=== PATIENT | female | born 1935 | race Caucasian/White ===

== ENCOUNTER 2017-07-20 10:20 | Emergency (ER) | payer MEDICARE, OTHER ==
[2017-07-20 10:28] VITALS: BMI 32.5
[2017-07-20 10:33] VITALS: TEMP 97.9
[2017-07-20] MEDS ORDERED: Tmp-Smz 800 mg-160 mg DS Tab PO STA (11:27)
[2017-07-20 11:53] VITALS: BP 150/75; PULSE 62; RESP 17; O2SAT 97
--- NOTE | 2017-07-20 13:22 | ED PDOC ---
Arrival/HPI - General Chief Complaint: Lower Extremity Problem/Injury Time Seen by Provider: 07/20/17 10:56 Historian: Patient - History of Present Illness Narrative History of Present Illness (Text): 07/20/17 11:00 A 82 year old female, whose past medical history includes hypertension and diabetes, comes in with [id number] and presents to the emergency department complaining of right toe pain for 2 weeks. Patient reports she went to see her cage tender 2 weeks ago and had her toe nails clipped. Next day, patient began experiencing right toe pain (1st digit) and swelling. She decided to come to the ER instead of seeing her cage tender again. Patient denies of any fever, recent injury, or any other complaints. Also, patient mentions her blood sugar was taken at home and is 97. PMD: Dr. Torres Cylinder Batcher: Dr. Teetee Queen Symptom Onset: Sudden Symptom Course: Unchanged Past Medical History - Provider Review Nursing Documentation Reviewed: Yes - Infectious Disease Hx of Infectious Diseases: None - Cardiac Hx Cardiac Disorders: Yes Hx Hypertension: Yes - Pulmonary Hx Respiratory Disorders: No - Neurological Hx Neurological Disorder: No - HEENT Hx HEENT Disorder: No - Renal Hx Renal Disorder: No - Endocrine/Metabolic Hx Endocrine Disorders: Yes Hx Diabetes Mellitus Type 2: Yes - Hematological/Oncological Hx Blood Disorders: No - Integumentary Hx Dermatological Disorder: No - Musculoskeletal/Rheumatological Hx Musculoskeletal Disorders: Yes Hx Arthritis: Yes - Gastrointestinal Hx Gastrointestinal Disorders: No - Genitourinary/Gynecological Hx Genitourinary Disorders: No - Psychiatric Hx Psychophysiologic Disorder: No Hx Substance Use: No - Anesthesia Hx Anesthesia: No Family/Social History - Physician Review Nursing Documentation Reviewed: Yes Family/Social History: No Known Family HX Smoking Status: Never Smoked Hx Alcohol Use: No Hx Substance Use: No Allergies/Home Meds Allergies/Adverse Reactions: Allergies No Known Allergies Allergy (Verified 07/20/17 10:28) Home Medications: Home Meds Medication Instructions Recorded Confirmed Aspirin [Adult Low Dose Aspirin EC] 1 tab PO DAILY 07/20/17 07/20/17 Losartan/Hydrochlorothiazide 1 tab PO DAILY 07/20/17 07/20/17 [Losartan-Hctz 100-25 mg Tab] Pravastatin Sodium [Pravachol] 1 tab PO DAILY 09/12/17 09/12/17 metFORMIN [glucOPHAGE] 500 mg PO BID 07/20/17 07/20/17 Review of Systems - Physician Review All systems were reviewed & negative as marked: Yes - Review of Systems Constitutional: absent: Fevers, Other (no recent injury) Musculoskeletal: Joint Swelling (right toe swelling (1st digit)), Other (right toe pain (1st digit)) Physical Exam Vital Signs Reviewed: Yes Vital Signs Temp Pulse Resp BP Pulse Ox 07/20/17 11:51 62 17 150/75 97 07/20/17 10:32 97.9 F 66 18 152/73 H 96 Temperature: Afebrile Blood Pressure: Normal Pulse: Regular Respiratory Rate: Normal Appearance: Positive for: Well-Appearing Pain Distress: None Mental Status: Positive for: Alert and Oriented X 3 - Systems Exam Head: Present: Atraumatic, Normocephalic Pupils: Present: PERRL Extroacular Muscles: Present: EOMI Conjunctiva: Present: Normal Mouth: Present: Moist Mucous Membranes Neck: Present: Normal Range of Motion Respiratory/Chest: Present: Clear to Auscultation, Good Air Exchange. No: Respiratory Distress, Accessory Muscle Use Cardiovascular: Present: Regular Rate and Rhythm, Normal S1, S2. No: Murmurs Abdomen: Present: Normal Bowel Sounds. No: Tenderness, Distention, Peritoneal Signs Back: Present: Normal Inspection Upper Extremity: Present: Normal Inspection. No: Cyanosis, Edema Lower Extremity: Present: Tenderness (right toe (1st digit), no visual toenail) , Swelling (mild swelling right toe (1st)). No: Other (no pus or drainage of right toe) Neurological: Present: GCS=15, CN II-XII Intact, Speech Normal Skin: Present: Warm, Dry, Normal Color. No: Rashes Psychiatric: Present: Alert, Oriented x 3, Normal Insight, Normal Concentration Medical Decision Making ED Course and Treatment: 07/20/17 11:06 Impression: 82 year old female with right toe pain (1st digit). Physical exam shows right toe tenderness, no visual toenail, mild swelling, no pus or drainage. Differential Diagnosis included but are not limited to: Ingrown toenail vs. Cellulitis Plan: -- Bactrim -- There is no evidence of ingrown toe nail. No pus or drainage. Prior Visits: Notes and results from previous visits were reviewed. Patient was last seen in the emergency department on Progress Notes: Patient's daughter will make sure that patient takes antibiotics and they would like to follow up with their cage tender. - Medication Orders Current Medication Orders: Discontinued Medications Trimethoprim/Sulfamethoxazole (Bactrim Ds Tab) 1 tab PO STAT STA PRN Reason: Protocol Stop: 07/20/17 11:28 Last Admin: 07/20/17 11:46 Dose: 1 tab - Scribe Statement The provider has reviewed the documentation as recorded by the Brennan Easton Provider Scribe Attestation: All medical record entries made by the Scribe were at my direction and personally dictated by me. I have reviewed the chart and agree that the record accurately reflects my personal performance of the history, physical exam, medical decision making, and the department course for this patient. I have also personally directed, reviewed, and agree with the discharge instructions and disposition. Disposition/Present on Arrival - Present on Arrival Any Indicators Present on Arrival: No History of DVT/PE: No History of Uncontrolled Diabetes: No Urinary Catheter: No History of Decub. Ulcer: No History Surgical Site Infection Following: None - Disposition Have Diagnosis and Disposition been Completed?: Yes Diagnosis: Cellulitis, toe Disposition: HOME/ ROUTINE Disposition Time: 11:53 Patient Plan: Discharge Condition: IMPROVED Discharge Instructions (ExitCare): Cellulitis (ED) Additional Instructions: Ms Nava, thank you for letting us take care of you today. Your provider was Dr. Bae. You were treated for Toe Cellulitis. The emergency medical care you received today was directed at your acute symptoms. If you were prescribed any medication, please fill it and take as directed. It may take several days for your symptoms to resolve. Return to the Emergency Department if your symptoms worsen, do not improve, or if you have any other problems. Please contact your doctor or call one of the physicians/clinics you have been referred to that are listed on the Patient Visit Information form that is included in your discharge packet. Bring any paperwork you were given at discharge with you along with any medications you are taking to your follow up visit. Our treatment cannot replace ongoing medical care by a primary care provider (PCP) outside of the emergency department. Thank you for allowing the [facility] team to be part of your care today. If you had an X-Ray or CT scan: A Radiologist will review the ED reading if any change in treatment is needed we will contact you. If you had a blood, urine, or wound culture: It will take several days for the results, if any change in treatment is needed we will contact you. If you had an STI test: It will take 48 hours for the results. Please call after 1 week if you have not heard back. Prescriptions: Ibuprofen [Motrin] 600 mg PO Q6 PRN #30 tab PRN Reason: Pain, Moderate (4-7) Sulfamethoxazole/Trimethoprim [Bactrim DS 800 mg-160 mg] 1 tab PO Q12 #14 tab Referrals: Teetee Queen DPM [Non-Staff] - Follow up with primary Carlitos Torres MD [Non-Staff] - Follow up with primary Forms: [employer] (Wallisian)
== END 2017-07-20 11:52 | disposition home or self-care (01) ==
LOC: EDBD → ED 10:20
DX: L03.031 Cellulitis of right toe (principal)

== ENCOUNTER 2017-10-24 10:33 | Emergency (ER) | payer MEDICARE, OTHER ==
[2017-10-24 10:34] VITALS: BMI 32.5
--- NOTE | 2017-10-24 10:50 | ED PDOC ---
Arrival/HPI - General Time Seen by Provider: 10/24/17 10:49 Historian: Patient - History of Present Illness Narrative History of Present Illness (Text): 10/24/17 10:50 82 year old female, pmh including htn/hyperlipidemia/dm, nkda, complaining of rt. lower calf pain x 3 days. Pt. stated that she was having rt. lower calf itching x 3 days which she has been scratching, started to have redness and pain yesterday, no fever or chills, no night sweat, no palpitation, no numbness or tingling, no other medical or psychological complaints. Past Medical History - Provider Review Nursing Documentation Reviewed: Yes - Infectious Disease Hx of Infectious Diseases: None - Cardiac Hx Cardiac Disorders: Yes Hx Hypertension: Yes - Pulmonary Hx Respiratory Disorders: No - Neurological Hx Neurological Disorder: No - HEENT Hx HEENT Disorder: No - Renal Hx Renal Disorder: No - Endocrine/Metabolic Hx Endocrine Disorders: Yes Hx Diabetes Mellitus Type 2: Yes - Hematological/Oncological Hx Blood Disorders: No - Integumentary Hx Dermatological Disorder: No - Musculoskeletal/Rheumatological Hx Musculoskeletal Disorders: Yes Hx Arthritis: Yes - Gastrointestinal Hx Gastrointestinal Disorders: No - Genitourinary/Gynecological Hx Genitourinary Disorders: No - Psychiatric Hx Psychophysiologic Disorder: No Hx Substance Use: No - Anesthesia Hx Anesthesia: No Family/Social History - Physician Review Nursing Documentation Reviewed: Yes Family/Social History: Unknown Family HX Smoking Status: Never Smoked Hx Alcohol Use: No Hx Substance Use: No Allergies/Home Meds Allergies/Adverse Reactions: Allergies No Known Allergies Allergy (Verified 10/24/17 10:55) Home Medications: Home Meds Medication Instructions Recorded Confirmed Aspirin [Adult Low Dose Aspirin EC] 1 tab PO DAILY 07/20/17 10/24/17 Losartan/Hydrochlorothiazide 1 tab PO DAILY 07/20/17 10/24/17 [Losartan-Hctz 100-25 mg Tab] Pravastatin Sodium [Pravachol] 1 tab PO DAILY 07/20/17 10/24/17 metFORMIN [glucOPHAGE] 500 mg PO BID 07/20/17 10/24/17 Review of Systems - Review of Systems Constitutional: absent: Fatigue, Fevers Eyes: absent: Vision Changes ENT: absent: Hearing Changes Respiratory: absent: SOB, Cough Cardiovascular: absent: Chest Pain Gastrointestinal: absent: Abdominal Pain, Nausea, Vomiting Musculoskeletal: absent: Arthralgias, Back Pain, Myalgias Skin: Rash, Pruritis, Skin Lesions, Cellulitis. absent: Laceration, Abscess, Ulcer Physical Exam Vital Signs Reviewed: Yes Vital Signs Temp Pulse Resp BP Pulse Ox 10/24/17 11:12 52 L 18 184/73 H 97 10/24/17 10:52 97.8 F 65 18 190/88 H 98 Temperature: Afebrile Blood Pressure: Hypertensive Pulse: Regular Respiratory Rate: Normal Appearance: Positive for: Well-Appearing, Non-Toxic, Comfortable Pain Distress: Mild Mental Status: Positive for: Alert and Oriented X 3 - Systems Exam Head: Present: Atraumatic, Normocephalic Pupils: Present: PERRL Extroacular Muscles: Present: EOMI Conjunctiva: Present: Normal Mouth: Present: Moist Mucous Membranes Neck: Present: Normal Range of Motion Respiratory/Chest: Present: Clear to Auscultation, Good Air Exchange. No: Respiratory Distress, Accessory Muscle Use Cardiovascular: Present: Regular Rate and Rhythm, Normal S1, S2. No: Murmurs Abdomen: Present: Normal Bowel Sounds. No: Tenderness, Distention, Peritoneal Signs Back: Present: Normal Inspection Upper Extremity: Present: Normal Inspection. No: Cyanosis, Edema Lower Extremity: Present: Normal Inspection. No: Edema Neurological: Present: GCS=15, Speech Normal, Motor Func Grossly Intact, Gait Normal, Memory Normal Skin: Present: Warm, Dry, Rashes (RLE: visible lichenification with cellulitis approx. [id number] noted on the rt. lateral calf region, no streaking or ulcer, no deformities, FROM without lmiitation, sensation intact, motor 5/5, +DPPT pulses noted, there is dark pigmentation and thin skin noted to be chronic venouous insufficiency noted on the bilateral lower extremity, no pedal edema. ), Normal Color Psychiatric: Present: Alert, Oriented x 3, Normal Insight, Normal Concentration Medical Decision Making ED Course and Treatment: 10/24/17 11:01 -Labs -RLE venuous doppler -Observe and reassess 10/24/17 11:38 -Labs are non-significant with no elevation of wbc, no streaking cellulitis, no systemic infection noted, afebrile except magnesium level is 1.6, magnesium po ordered -RLE Venuous doppler: as per preliminary report, no acute DVT -Pt. is stable for outpatient antibiotic as po, will start on the clindmycin. -Pt. has chronic elevated BP with asymptomatic, no cardiopulmonary or neurological deficits or complaints. -Discharge home with clindamycin, zyrtec for itching, tylenol for pain, elevation, bed rest, avoid rubbing any fragrant or rubbing solution on the painful site, follow up with your own pmd within 2 days for follow up, return to the Emergency room for any new or worsening signs or symptoms. - Lab Interpretations Lab Results: 10/24/17 11:00 10/24/17 11:00 Lab Results 10/24/17 11:00: WBC 4.7, RBC 3.71, Hgb 10.7 L, Hct 34.4 L, MCV 92.7, MCH 28.8, MCHC 31.1, RDW 14.0, Plt Count 203, MPV 10.2, Gran % 46.1 L, Lymph % (Auto) 42.5 H, Early % (Auto) 8.7 H, Eos % (Auto) 2.3, Baso % (Auto) 0.4, Gran # 2.17, Lymph # 2.0, Early # 0.4, Eos # 0.1, Baso # 0.02 10/24/17 11:00: Sodium 139, Potassium 4.7, Chloride 104, Carbon Dioxide 27, Anion Gap 13, BUN 15, Creatinine 0.9, Est GFR ( Amer) > 60, Est GFR (Non- Af Amer) > 60, Random Glucose 111 H, Calcium 9.4, Magnesium 1.6 L, Total Bilirubin 0.3, AST 17, ALT 23, Alkaline Phosphatase 92, Total Protein 7.4, Albumin 3.9, Globulin 3.5, Albumin/Globulin Ratio 1.1 I have reviewed the lab results: Yes - RAD Interpretation Radiology Orders: 10/24/17 10:57 DUPLEX LOWER EXTRM VEIN RIGHT [US] Stat -RLE Venuous doppler: as per preliminary report, no acute DVT Budget Record Clerk: Radiologist - Medication Orders Current Medication Orders: Discontinued Medications Magnesium Oxide (Mag-Ox) 400 mg PO STAT STA Stop: 10/24/17 11:38 Last Admin: 10/24/17 11:49 Dose: 400 mg - PA / ANALYTICAL LAB ANALYST / Resident Statement /DO has reviewed & agrees with the documentation as recorded. Disposition/Present on Arrival - Present on Arrival Any Indicators Present on Arrival: No History of DVT/PE: No History of Uncontrolled Diabetes: No Urinary Catheter: No History of Decub. Ulcer: No History Surgical Site Infection Following: None - Disposition Have Diagnosis and Disposition been Completed?: Yes Diagnosis: Cellulitis Disposition: HOME/ ROUTINE Disposition Time: 12:22 Patient Plan: Discharge Condition: GOOD Discharge Instructions (ExitCare): Cellulitis (ED) Additional Instructions: -Discharge home with clindamycin, zyrtec for itching, tylenol for pain, elevation, bed rest, avoid rubbing any fragrant or rubbing solution on the painful site, follow up with your own pmd within 2 days for follow up, return to the Emergency room for any new or worsening signs or symptoms. Prescriptions: Acetaminophen [Tylenol 325mg tab] 2 tab PO QID PRN #30 tab PRN Reason: Other Cetirizine HCl [Zyrtec] 10 mg PO DAILY #10 capsule Clindamycin [Cleocin] 300 mg PO TID #30 cap Referrals: Carlitos Torres MD [Primary Care Provider] - Follow up with primary
[2017-10-24 10:54] VITALS: RESP 18; TEMP 97.8
[2017-10-24 11:17] LABS: BASO # 0.02 K/mm3 (0.0-2.0); BASO % 0.4 % (0.0-3.0); EOS # 0.1 (0.0-0.7); EOS % 2.3 % (1.5-5.0); GRAN # 2.17 (1.4-6.5); GRAN % 46.1 % (50.0-68.0); HEMATOCRIT 34.4 % (36.0-48.0); LYMPH % 42.5 % (22.0-35.0); MEAN CELL VOLUME 92.7 fl (80.0-105.0); MEAN CORPUSCULAR HEMOGLOBIN 28.8 pg (25.0-35.0); MEAN CORPUSCULAR HGB CONC 31.1 g/dl (31.0-37.0); MEAN PLATELET VOLUME 10.2 fl (7.0-11.0); MONO # 0.4 (0.1-0.6); MONO % 8.7 % (1.0-6.0); WHITE BLOOD COUNT 4.7 10^3/ul (4.5-11.0)
[2017-10-24 11:26] LABS: ALB/GLOB RATIO 1.1 (1.1-1.8); ALKALINE PHOSPHATASE 92 U/L (38-126); ALT/SGPT 23 U/L (7-56); AST/SGOT 17 U/L (14-36); BILIRUBIN,TOTAL 0.3 mg/dL (0.2-1.3); BLOOD UREA NITROGEN 15 mg/dL (7-21); CALCIUM 9.4 mg/dL (8.4-10.5); CARBON DIOXIDE 27 mmol/L (21-33); CHLORIDE 104 mmol/L (98-107); GFR AFRICAN-AMERICAN > 60; GLUCOSE,RANDOM 111 mg/dL (70-110); MAGNESIUM 1.6 mg/dL (1.7-2.2); POTASSIUM 4.7 mmol/L (3.6-5.0); SODIUM 139 mmol/L (132-148); TOTAL PROTEIN 7.4 g/dL (5.8-8.3)
[2017-10-24] MEDS ORDERED: Magnesium Sulfate 1 gm in D5W 1 GM/100 ML BAG IVPB ONE (11:36)
[2017-10-24] MEDS ORDERED: Magnesium Oxide 400 mg Tab UD PO STA (11:37)
[2017-10-24 12:35] VITALS: BP 180/78; PULSE 61; O2SAT 98
--- NOTE | 2017-10-25 10:21 | US ---
PROCEDURE: Right lower extremity venous US HISTORY: Leg pain and swelling. Evaluate for DVT. PHYSICIAN(S): Huber Hodges M.D. TECHNIQUE: Duplex sonography and color-flow Doppler with graded compression were used to evaluate the deep venous system of the right lower extremity. FINDINGS: The visualized deep venous system of the right lower extremity is sonographically normal and compressible. Normal waveforms and augmentation are seen. There is no sonographic evidence for deep venous thrombosis in the visualized segments of the right lower extremity. IMPRESSION: 1. No sonographic evidence for deep venous thrombosis in the visualized segments of the right lower extremity.
== END 2017-10-24 12:39 | disposition home or self-care (01) ==
LOC: ED 10:33
DX: L03.115 Cellulitis of right lower limb (principal); I10 Essential (primary) hypertension

== ENCOUNTER 2017-11-08 11:28 | Emergency (ER) | payer MEDICARE, OTHER ==
[2017-11-08 11:29] VITALS: BMI 32.5
[2017-11-08 11:39] VITALS: TEMP 98.1
--- NOTE | 2017-11-08 12:01 | ED PDOC ---
Arrival/HPI - General Chief Complaint: Female Genitourinary Time Seen by Provider: 11/08/17 11:59 Historian: Patient, Family (son and [id number]) - History of Present Illness Narrative History of Present Illness (Text): 11/08/17 12:01 A 82 year old female, whose past medical history includes hypertension, diabetes type 2, and arthritis, presents to the emergency department complaining of hematuria. Patient reports she noticed some brownish bloody material in urine yesterday afternoon. pt denied any pain with her hematuria; Patient denies any fever, chills, sweats, nausea, vomiting, abdominal pain, appetite changes, fall, vaginal bleeding, dysuria, stool changes, or any other complaints. pt denied other complaints; pt is here for further eval HX of uterine fibroid mass for 45 years. PMD: Dr. Carlitos Torres 11/08/17 13:56 Time/Duration: < week (~ 1-2 days) Symptom Onset: Sudden Severity Level: Mild Past Medical History - Provider Review Nursing Documentation Reviewed: Yes - Travel History Have you recently traveled outside [place] w/in the past 3 mons?: No - Infectious Disease Hx of Infectious Diseases: None - Cardiac Hx Cardiac Disorders: Yes Hx Hypertension: Yes - Pulmonary Hx Respiratory Disorders: No - Neurological Hx Neurological Disorder: No - HEENT Hx HEENT Disorder: No - Renal Hx Renal Disorder: No - Endocrine/Metabolic Hx Endocrine Disorders: Yes Hx Diabetes Mellitus Type 2: Yes - Hematological/Oncological Hx Blood Disorders: No - Integumentary Hx Dermatological Disorder: No - Musculoskeletal/Rheumatological Hx Musculoskeletal Disorders: Yes Hx Arthritis: Yes - Gastrointestinal Hx Gastrointestinal Disorders: No - Genitourinary/Gynecological Hx Genitourinary Disorders: No - Psychiatric Hx Psychophysiologic Disorder: No Hx Substance Use: No - Anesthesia Hx Anesthesia: No Family/Social History - Physician Review Nursing Documentation Reviewed: Yes Family/Social History: No Known Family HX Smoking Status: Never Smoked Hx Alcohol Use: No Hx Substance Use: No Allergies/Home Meds Allergies/Adverse Reactions: Allergies No Known Allergies Allergy (Verified 11/08/17 11:31) Home Medications: Home Meds Medication Instructions Recorded Confirmed Aspirin [Adult Low Dose Aspirin EC] 1 tab PO DAILY 07/20/17 11/08/17 Pravastatin Sodium [Pravachol] 1 tab PO DAILY 07/20/17 11/08/17 metFORMIN [glucOPHAGE] 500 mg PO BID 07/20/17 11/08/17 hydrALAZINE [Apresoline] 10 mg PO BID 11/08/17 11/08/17 Review of Systems - Physician Review All systems were reviewed & negative as marked: Yes - Review of Systems Constitutional: absent: Fevers, Night Sweats, Other (no fall) Eyes: Normal ENT: Normal Respiratory: Normal Cardiovascular: Normal Gastrointestinal: absent: Abdominal Pain, Stool Changes, Nausea, Vomiting, Appetite Changes Genitourinary Female: Hematuria. absent: Dysuria, Vaginal Bleeding Musculoskeletal: Normal Skin: Normal Neurological: Normal Endocrine: Normal Hemo/Lymphatic: Normal Psychiatric: Normal Physical Exam Vital Signs Reviewed: Yes Vital Signs Temp Pulse Resp BP Pulse Ox 11/08/17 11:35 98.1 F 58 L 17 186/73 H 98 11/08/17 11:29 98.1 F 58 L 18 186/73 H 98 Temperature: Afebrile Blood Pressure: Hypertensive Pulse: Regular Respiratory Rate: Normal Appearance: Positive for: Well-Appearing, Other (WNL, cooperative, NAD, comfortable, alert/awake, GCS = 15, oriented x 3) Pain Distress: None Mental Status: Positive for: Alert and Oriented X 3 - Systems Exam Head: Present: Atraumatic, Normocephalic Pupils: Present: PERRL Extroacular Muscles: Present: EOMI Conjunctiva: Present: Normal Ears: Present: Normal Mouth: Present: Moist Mucous Membranes, Other (poor dentitions, no drooling/ stridor, no exudate/lesions) Pharnyx: Present: Normal Neck: Present: Normal Range of Motion, Trachea Midline. No: MIDLINE TENDERNESS Respiratory/Chest: Present: Clear to Auscultation, Good Air Exchange. No: Respiratory Distress, Accessory Muscle Use Cardiovascular: Present: Regular Rate and Rhythm, Normal S1, S2. No: Murmurs Abdomen: Present: Normal Bowel Sounds, Mass/Organomegaly (mid/suprapubic enlarged palpable non-tender non-mobile mass/lesion diagnosed as uterine fibroid (has had this for 45 years)). No: Tenderness, Distention, Peritoneal Signs Back: Present: Normal Inspection. No: CVA Tenderness, Midline Tenderness Upper Extremity: Present: Normal Inspection, Normal ROM, NORMAL PULSES, Neurovascularly Intact, Capillary Refill < 2s. No: Cyanosis, Edema Lower Extremity: Present: Normal Inspection, NORMAL PULSES, Neurovascularly Intact. No: Edema Neurological: Present: GCS=15, CN II-XII Intact, Speech Normal Skin: Present: Warm, Dry, Pale (slight palor), Other (cap refill < 1sec, no ulcerations, no petechiae). No: Rashes Psychiatric: Present: Alert, Oriented x 3, Normal Insight, Normal Concentration Medical Decision Making ED Course and Treatment: 11/08/17 12:04 Impression: 82 year old female with painless hematuria. Plan: -- Labs -- Urine Culture -- Urinalysis -- Reassess and disposition Prior Visits: Notes and results from previous visits were reviewed. Patient was last seen in the emergency department on 10/24/2017 for right lower calf pain. Patient was d/ c home. Progress Notes: 11/08/17 14:01 pt remained comfortable, NAD 11/08/17 14:44 pt is doing well pt is comfortable pt/family are made aware of her medical results pt is encouraged continued fluids/hydration pt will f/u as directed pt will be discharged home Re-evaluation Time: 14:02 Reassessment Condition: Improved - Lab Interpretations Lab Results: 11/08/17 12:15 11/08/17 12:15 Lab Results 11/08/17 12:15: Sodium 141, Potassium 4.6, Chloride 103, Carbon Dioxide 29, Anion Gap 14, BUN 17, Creatinine 0.9, Est GFR ( Amer) > 60, Est GFR (Non- Af Amer) > 60, Random Glucose 113 H, Calcium 9.8, Total Bilirubin 0.4, AST 20, ALT 25, Alkaline Phosphatase 94, Total Protein 8.0, Albumin 4.1, Globulin 3.9, Albumin/Globulin Ratio 1.1 11/08/17 12:15: WBC 6.0 D, RBC 3.74, Hgb 11.0 L, Hct 34.7 L, MCV 92.8, MCH 29.4 , MCHC 31.7, RDW 13.9, Plt Count 235, MPV 10.1, Gran % 52.4, Lymph % (Auto) 37.2 H, [place] % (Auto) 7.7 H, Eos % (Auto) 2.2, Baso % (Auto) 0.5, Gran # 3.14, Lymph # 2.2, [place] # 0.5, Eos # 0.1, Baso # 0.03 11/08/17 12:04: Urine Color Yellow, Urine Appearance Cloudy, Urine pH 6.5, Ur Specific [place] 1.020, Urine Protein 100 H, Urine Glucose (UA) Negative, Urine Ketones Negative, Urine Blood Large H, Urine Nitrate Positive H, Urine Bilirubin Small H, Urine Urobilinogen 0.2, Ur Leukocyte Esterase Moderate H, Urine RBC Tntc, Urine WBC Tntc, Ur Epithelial Cells 10 - 12, Urine Bacteria Many + UTI I have reviewed the lab results: Yes Interpretation: Abnormal lab values - Medication Orders Current Medication Orders: Discontinued Medications Ceftriaxone Sodium (Rocephin 1 Gram Ivpb) 1 gm in 100 mls @ 200 mls/hr IVPB STAT STA PRN Reason: Protocol Stop: 11/08/17 14:22 Last Admin: 11/08/17 14:07 Dose: 200 mls/hr eMAR Start Stop Document 11/08/17 14:07 SRE (Rec: 11/08/17 14:09 SRE [id number]) Intravenous Solution Start Date 11/08/17 Start Time 14:09 End Date 11/08/17 End time 15:10 Total Infusion Time 61 - Scribe Statement The provider has reviewed the documentation as recorded by the Brennan Easton Provider Scribe Attestation: All medical record entries made by the Scribe were at my direction and personally dictated by me. I have reviewed the chart and agree that the record accurately reflects my personal performance of the history, physical exam, medical decision making, and the department course for this patient. I have also personally directed, reviewed, and agree with the discharge instructions and disposition. Disposition/Present on Arrival - Present on Arrival Any Indicators Present on Arrival: No History of DVT/PE: No History of Uncontrolled Diabetes: Yes Urinary Catheter: No History of Decub. Ulcer: No History Surgical Site Infection Following: None - Disposition Have Diagnosis and Disposition been Completed?: Yes Diagnosis: UTI (urinary tract infection), Hematuria Disposition: HOME/ ROUTINE Disposition Time: 14:45 Patient Plan: Discharge Patient Problems: Current Active Problems Problem Status Onset UTI (urinary tract infection) Acute Hematuria Acute Condition: STABLE Discharge Instructions (ExitCare): Urinary Tract Infection in Women (ED), Acute Hematuria (ED) Print Language: [id number] Additional Instructions: Make sure to see your doctor in 1-2 days DRINK PLENTY OF FLUIDS take your medications as prescribed RETURN TO ED IF worse pain, cant breath, persistent vomiting, high fever >101- 102 for hours, altered behavior, unable to urinate, heavy/persistent bleeding, passing out, chest pain, or other medical emergencies Prescriptions: Sulfamethoxazole/Trimethoprim [Bactrim DS 800 mg-160 mg] 1 tab PO BID #20 tab Referrals: PCP,NO [Non-Staff] - Follow up with primary Forms: [employer] (Kazakh)
[2017-11-08 12:07] LABS: PH,URINE 6.5 (4.7-8.0); URINE BILIRUBIN SMALL (NEGATIVE); URINE BLOOD LARGE (NEGATIVE); URINE GLUCOSE (UA) NEGATIVE (NEGATIVE); URINE LEUKOCYTE ESTERASE MODERATE Leu/uL (NEGATIVE); URINE NITRATE POSITIVE (NEGATIVE); URINE PROTEIN 100 mg/dL (<30 mg/dL); URINE UROBILINOGEN 0.2 E.U./dL (<1 E.U./dL)
[2017-11-08 12:09] LABS: URINE APPEARANCE CLOUDY (CLEAR); URINE COLOR YELLOW (YELLOW)
[2017-11-08 12:18] LABS: URINE BACTERIA MANY (NEG); URINE RBC TNTC /hpf (0-2); URINE WBC TNTC /hpf (0-6)
[2017-11-08 12:31] LABS: BASO # 0.03 K/mm3 (0.0-2.0); BASO % 0.5 % (0.0-3.0); EOS # 0.1 (0.0-0.7); EOS % 2.2 % (1.5-5.0); GRAN # 3.14 (1.4-6.5); GRAN % 52.4 % (50.0-68.0); LYMPH # 2.2 (1.2-3.4); LYMPH % 37.2 % (22.0-35.0); MEAN CELL VOLUME 92.8 fl (80.0-105.0); MEAN CORPUSCULAR HEMOGLOBIN 29.4 pg (25.0-35.0); MEAN CORPUSCULAR HGB CONC 31.7 g/dl (31.0-37.0); MEAN PLATELET VOLUME 10.1 fl (7.0-11.0); MONO # 0.5 (0.1-0.6); MONO % 7.7 % (1.0-6.0); RBC 3.74 10^6/uL (3.5-6.1); RED CELL DISTRIBUTION WIDTH 13.9 % (11.5-14.5)
[2017-11-08 12:41] LABS: ALB/GLOB RATIO 1.1 (1.1-1.8); ALBUMIN 4.1 g/dL (3.0-4.8); ALT/SGPT 25 U/L (7-56); AST/SGOT 20 U/L (14-36); BLOOD UREA NITROGEN 17 mg/dL (7-21); CALCIUM 9.8 mg/dL (8.4-10.5); GFR AFRICAN-AMERICAN > 60; GFR NON-AFRICAN AMERICAN > 60
[2017-11-08] MEDS ORDERED: cefTRIAXone 1 gm 1 GM/100 ML BAG IVPB STA (13:53)
[2017-11-08 14:55] VITALS: BP 181/73; PULSE 65; RESP 18; O2SAT 99
== END 2017-11-08 14:55 | disposition home or self-care (01) ==
LOC: ED 11:28
DX: N39.0 Urinary tract infection, site not specified (principal); R31.9 Hematuria, unspecified